=== PATIENT | female | born 1985 | race Caucasian/White ===

== ENCOUNTER 2016-09-04 19:25 | Emergency (ER) | payer BC ==
[2016-09-04 20:00] VITALS: RESP 20
--- NOTE | 2016-09-04 21:49 | ED ---
Abdominal Pain HPI - General Chief Complaint: Abdominal Pain Stated Complaint: Bowel movement problem Time Seen by Provider: 09/04/16 21:22 Source: patient, family, RN notes reviewed Mode of arrival: ambulatory Limitations: no limitations - History of Present Illness Initial Comments: Patient is a 30 year old female, recently moved from [place], [place] with chief complaint of 2 years of weight loss, bowel problems, and gassiness. Patient states that she has had a full work up and has a colonoscopy scheduled in one month. She states that today, she had a bowel movement and found a large worm like substance in her stool. She states that she believes that she has an intestinal parasite. She denies any travel history, she states that she does have a dog. She states that she is concerned taht it can pass to her and daughter. Patient is very distressed about this. Patient states that she brought the worm from her stool to the [facility]. - Related Data Home Medications Medication Instructions Recorded Confirmed Lisdexamfetamine Dimesylate 60 mg PO QAM 09/04/16 09/04/16 [Vyvanse] Norethindrone AC-Eth Estradiol 1 tab PO DAILY 09/04/16 09/04/16 [Loestrin 21 1.5-30 Tablet] clonazePAM [KlonoPIN] 2 mg PO BID PRN 09/04/16 09/04/16 Previous Rx's Medication Instructions Recorded Albendazole [Albenza] 400 mg PO BID 10 Days 09/04/16 Allergies Allergy/AdvReac Type Severity Reaction Status Date / Time No Known Allergies Allergy Verified 09/04/16 21:36 Review of Systems ROS Statement: Those systems with pertinent positive or pertinent negative responses have been documented in the HPI. ROS Other: All systems not noted in ROS Statement are negative. Past Medical History Additional Past Medical History / Comment(s): constipation, anxiety History of Any Multi-Drug Resistant Organisms: None Reported Past Surgical History: Section Past Psychological History: ADD/ADHD, Anxiety Smoking Status: Former smoker Past Alcohol Use History: None Reported Past Drug Use History: None Reported General Exam Limitations: no limitations General appearance: alert, in no apparent distress Head exam: Present: atraumatic, normocephalic, normal inspection Eye exam: Present: normal appearance, PERRL, EOMI. Absent: scleral icterus, conjunctival injection, periorbital swelling ENT exam: Present: normal exam, mucous membranes moist Neck exam: Present: normal inspection. Absent: tenderness, meningismus, lymphadenopathy Respiratory exam: Present: normal lung sounds bilaterally. Absent: respiratory distress, wheezes, rales, rhonchi, stridor Cardiovascular Exam: Present: regular rate, normal rhythm, normal heart sounds. Absent: systolic murmur, diastolic murmur, rubs, gallop, clicks GI/Abdominal exam: Present: soft, hyperactive bowel sounds (significant amount of bowel gas). Absent: distended, tenderness, guarding, rebound, rigid, normal bowel sounds Extremities exam: Present: normal inspection, full ROM, normal capillary refill. Absent: tenderness, pedal edema, joint swelling, calf tenderness Back exam: Present: normal inspection Neurological exam: Present: alert, oriented X3, CN II-XII intact Psychiatric exam: Present: normal affect, normal mood Skin exam: Present: warm, dry, intact, normal color. Absent: rash Course Vital Signs 09/04/16 09/04/16 19:54 22:15 Temperature 97.9 F 98 F Pulse Rate 80 78 Respiratory 20 20 Rate Blood Pressure 123/76 122/75 O2 Sat by Pulse 98 98 Oximetry Medical Decision Making - Medical Decision Making Patient is a 30 year old female, no travel history or fever or specific abdominal pain with cheif complaint of 2 years of weight loss, gasiness, and possibility of intestinal parasite. She reports occasional red diarrhea. Patient brought in what appears similiar to a round worm from her stool, measures 5cm long. At this time patient does have significant bowel gas, that is audible with palpation of the abdomen, no tenderness. She states that she is concerned that it will transfer to her family. Patient cannot have a bowel movement in the [facility]. At this time, I will treat patient with albendazole for 10 days, and have family follow up with their respective physicians for treatment. Patient will be given outpatient script for ova and parasite labs of stool, WBC stool. Patient agrees with treatment plan and will comply. Disposition Clinical Impression: Bloating, Abnormal bowel movement Disposition: HOME SELF-CARE Condition: Good Instructions: Traveler's Diarrhea (ED) Additional Instructions: Completely antibiotic. Follow-up with primary care provider. Complete colonoscopy. Prescriptions: Albendazole [Albenza] 400 mg PO BID 10 Days Referrals: Nonstaff,Physician [Primary Care Provider] - 1-2 days Time of Disposition: 21:41
[2016-09-04 22:26] VITALS: BP 122/75; PULSE 78; TEMP 98
== END 2016-09-04 22:15 | disposition home or self-care (01) ==
LOC: EC 19:25
DX: R14.0 Abdominal distension (gaseous) (principal); R63.4 Abnormal weight loss; F90.9 Attention-deficit hyperactivity disorder, unspecified type; Z79.899 Other long term (current) drug therapy; Z79.3 Long term (current) use of hormonal contraceptives
CPT/HCPCS: 99283